=== PATIENT | male | born 1970 | race Caucasian/White ===

== ENCOUNTER 2017-09-30 14:48 | Emergency (ER) | payer OTHER ==
[2017-09-30 15:30] VITALS: BP 144/109; O2SAT 95
--- NOTE | 2017-09-30 15:33 | CPEKG ---
Heart Rate: 56 RR Interval: 1071 P-R Interval: 208 QRSD Interval: 98 QT Interval: 432 QTC Interval: 417 P [place]: 52 QRS [place]: 36 T Wave [place]: -28 EKG Severity - BORDERLINE ECG - EKG Impression: SINUS RHYTHM EKG Impression: BORDERLINE T ABNORMALITIES, DIFFUSE LEADS Electronically Signed By: Destiny Navarrete 30-Sep-2017 23:06:02
--- NOTE | 2017-09-30 16:41 | EDPHY ---
H & P Time Seen by Provider: 09/30/17 15:24 HPI/ROS: HPI Concerned about blood pressure. 47-year-old male by private vehicle with his family. Patient reports that for the last few days he has noticed his blood pressure has been high. He reports yesterday he felt that both of his legs were swollen from his thighs down to his ankles. He also reports that last night he felt short of breath. He denies any shortness of breath now. He denies any shortness of breath with exertion and walking around today. No chest pain. No problems urinating. No headache. No other complaints. He was on HCTZ years ago but has been off of this medication. He had no adverse reactions to this medication. ROS: Constitutional: No fever, no chills. No weakness. Eyes: No discharge. No changes in vision. Respiratory: No cough. No shortness of breath. Cardiac: No chest pain, no palpitations. Gastrointestinal: No abdominal pain, no vomiting, no diarrhea. Genitourinary: No dysuria or increased frequency with urination. Musculoskeletal: No back pain. No neck pain. No myalgias or arthralgias. Skin: No rashes. Neurological: No headache. No focal weakness or altered sensation. Past medical history: Bipolar for which she takes lithium. Hyperlipidemia, hypertension. Social history: Nonsmoker. Here with his and son. No alcohol. Physical Exam: General Appearance: Alert, no distress. This patient is responding to questions appropriately and in full sentences. This patient appears well- hydrated and well-nourished. Eyes: Pupils equal and round no pallor or injection. No lid edema, erythema or injection. Respiratory: There are no retractions, lungs are clear to auscultation with good air movement bilaterally. Cardiovascular: Regular rate and rhythm. No murmur. Gastrointestinal: Abdomen is soft and nontender, no masses, bowel sounds normal. No focal tenderness at McBurney's point. No Panda sign. Neurological: Motor sensory function is grossly intact. Cranial nerves are normal. Gait is normal. Skin: Warm and dry, no rashes. Musculoskeletal: Neck is supple and nontender. Extremities are symmetrical. No lower extremity edema appreciated. All joints range without pain or impingement. Psychiatric: No agitation. No depression. Database: EKG: Imaging: Procedures: Emergency department course: Vital signs reviewed. He has been moderately hypertensive with initial blood pressure 155/113 and repeat blood pressure 144/109. 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 I discussed management options with him. His presentation is not consistent with a hypertensive emergency. I will restart him on his HCTZ. I will then provide him referral to a primary care physician for his ongoing healthcare needs and management of his hypertension. He feels comfortable with this plan. Return to emergency department precautions reviewed. All of his questions were answered. He was discharged in good condition. Differential Diagnosis: The differential diagnosis on this patient includes but is not limited to uncontrolled hypertension. Hypertensive emergency, pulmonary embolism, congestive heart failure, acute coronary syndrome unlikely. This represents a partial list of diagnoses considered. These considerations are based on history , physical exam, past history, reassessment and diagnostic testing. Smoking Status: Current every day smoker Constitutional: Initial Vital Signs Temperature (C) 37 C 09/30/17 14:50 Heart Rate 65 09/30/17 14:50 Respiratory Rate 18 09/30/17 14:50 Blood Pressure 155/113 H 09/30/17 14:50 O2 Sat (%) 97 09/30/17 14:50 O2 Delivery Mode Room Air Allergies/Adverse Reactions: No Known Allergies Allergy (Unverified 09/30/17 14:49) Home Medications: Medication Instructions Recorded Atorvastatin Calcium 09/30/17 Hydrochlorothiazide [HCTZ (*)] 25 mg PO DAILY #14 tab 09/30/17 LAMOTRIGINE 09/30/17 [place] Aspartate 09/30/17 Departure - Departure Disposition: Home, Routine, Self-Care Clinical Impression: Elevated blood pressure reading, History of hypertension Condition: Good Instructions: Hypertension (ED) Additional Instructions: Read and follow provided instructions. Follow-up with your primary care physician within the next week for re- evaluation and ongoing management of your high blood pressure. I have provided you with several referrals. Take medication as prescribed only. Return to the emergency department for chest pain, shortness of breath or other serious concerns. Referrals: YAYA ALEXIS [Other] - As per Instructions Humberto Marvin MD [Medical Doctor] - As per Instructions Alexa Graves MD [Medical Doctor] - As per Instructions Dileep Long MD [[facility] [place] Primary Care Provider] - As per Instructions Cody Ordonez MD [Medical Doctor] - As per Instructions Prescriptions: Hydrochlorothiazide [HCTZ (*)] 25 mg PO DAILY #14 tab
[2017-09-30 16:53] VITALS: PULSE 62; RESP 17; TEMP 98.1
== END 2017-09-30 16:53 | disposition home or self-care (01) ==
DX: I10 Essential (primary) hypertension (principal); F17.200 Nicotine dependence, unspecified, uncomplicated

== ENCOUNTER → 2019-05-17 | Outpatient (CLI) | payer OTHER | LOC: FIMAGING 07:45 ==